=== PATIENT | female | born 1945 | race African-American/Black ===

== ENCOUNTER 2018-05-12 17:30 | Emergency (ER) | payer OTHER ==
[~2018-05-12] VITALS: Ht 167.6 cm; Wt 56.7 kg
[~2018-05-12 17:30] MED LIST: AMLO; ARICEPT; ATIVAN; BUPR; BUPR100T14 OR; DIVA250T3 PO; DONE10TA17 PO; ENAL-3 PO; FURO20TA3 PO; LEVE500T22 PO; LORA-205 PO; LORA1TAB12 PO; MEGE40TA15 PO; METROPOLOL PO; MIRT15TA3 PO; PAXIL PO; POTA8TAB2 PO; SIMV40TA96 PO; [UNRECOGNIZED DRUG - OTHER]; [UNRECOGNIZED DRUG - OTHER]
[2018-05-12 18:38] LABS: Basophils # (auto) 0 uL; Basophils % (auto) 0.4 % (0.0-2.0); Eosinophils # (auto) 0 uL; Eosinophils % (auto) 0.5 % (0.0-7.0); Hematocrit 41.8 % (36.0-46.0); Hemoglobin 13.8 g/dL (12.2-16.2); Lymphocytes # (auto) 2.3 uL; Lymphocytes % (auto) 26.9 % (10.0-50.0); Mean Corpuscular Hemoglobin 28.6 pg (28.0-32.0); Mean Corpuscular Hgb Conc. 32.9 g/dL (32.0-36.0); Mean Corpuscular Volume 86.7 fL (80.0-100.0); Monocytes # (auto) 0.8 uL; Neutrophils # (auto) 5.5 uL; Neutrophils % (auto) 63.2 % (37.0-80.0); Platelet Count (auto) 131 10^3/uL (140-450); Red Blood Cells 4.82 10^6/uL (4.0-5.20); Red Cell Distribution Width 14.5 % (11.8-14.3); White Blood Cell 8.7 10^3/uL (4.4-10.8)
[2018-05-12 18:42] LABS: Albumin 2.9 g/dL (3.4-5.0); Anion Gap 17 (5-15); BUN/Creatinine Ratio 6.3; Blood Urea Nitrogen 8 mg/dL (7-18); Calcium 8.3 mg/dL (8.5-10.1); Carbon Dioxide 19 mmol/L (21-32); Chloride 102 mmol/L (98-107); GFR African American 53 mL/min; GFR Non-African American 44 mL/min; Glucose 70 mg/dL (74-106); Sodium 138 mmol/L (136-145)
[2018-05-12 18:45] LABS: Alanine Aminotransferase 17 U/L (13-56); Alkaline Phosphatase 64 U/L (45-117); Aspartate Aminotransferase 31 U/L (15-37); Bilirubin, Total 0.4 mg/dL (0.2-1.0); Total Protein 7.7 g/dL (6.4-8.2)
[2018-05-12 18:47] LABS: Potassium 2.7 mmol/L (3.5-5.1)
[2018-05-12] MEDS ORDERED: SOD CHL 0.9%/ KCL 20MEQ 1,000 ML IV ONE (19:00)
[2018-05-12] MEDS ORDERED: POTASSIUM CHL 20MEQ/100ML 100 ML IV ONE (21:00)
[2018-05-12] MEDS ORDERED: DEXTROSE (50%) 50ML SYRG IV ONE (23:00)
[2018-05-12] MEDS ORDERED: DEXTROSE 50% SYRINGE 50 ML IV ONE (23:02)
[2018-05-13 02:39] LABS: Albumin 2.6 g/dL (3.4-5.0); BUN/Creatinine Ratio 7.3; Calcium 8.1 mg/dL (8.5-10.1)
[2018-05-13 02:42] LABS: Bilirubin, Total 0.6 mg/dL (0.2-1.0); Total Protein 6.9 g/dL (6.4-8.2)
[2018-05-13 02:44] LABS: Potassium 2.7 mmol/L (3.5-5.1)
[2018-05-13] MEDS ORDERED: POTASSIUM CHL 20MEQ/100ML 100 ML IV ONE (03:00)
[2018-05-13 07:39] LABS: BUN/Creatinine Ratio 7.9; Calcium 8.4 mg/dL (8.5-10.1); Potassium 3.3 mmol/L (3.5-5.1)
[2018-05-13 09:21] VITALS: BP 106/70
== END 2018-05-13 10:01 | disposition short-term general hospital (02) ==
LOC: ER 17:30 → EDBD 17:30 → ER 05-13 10:01
DX: T38.3X1A Poisoning by insulin and oral hypoglycemic [antidiabetic] drugs, accidental (unintentional), initial encounter (principal); R55 Syncope and collapse; E16.2 Hypoglycemia, unspecified; R41.82 Altered mental status, unspecified; G40.909 Epilepsy, unspecified, not intractable, without status epilepticus; E87.6 Hypokalemia; G30.9 Alzheimer's disease, unspecified; F02.80 Dementia in other diseases classified elsewhere, unspecified severity, without behavioral disturbance, psychotic disturbance, mood disturbance, and anxiety; F32.9 Major depressive disorder, single episode, unspecified; E78.5 Hyperlipidemia, unspecified; I10 Essential (primary) hypertension; F17.210 Nicotine dependence, cigarettes, uncomplicated; Y92.9 Unspecified place or not applicable
CPT/HCPCS: 36415; 70450; 80048; 80053; 82550; 82962; 83880; 84443; 84484; 85025; 93005; 94761; 96365; 96366; 96375; 99285; J3480; J7030; J7040; J7042

== ENCOUNTER 2018-08-22 17:46 | Emergency (ER) | payer OTHER ==
[~2018-08-22] VITALS: Ht 157.5 cm; Wt 54.4 kg
[2018-08-22] MEDS ORDERED: SODIUM CHLORIDE 0.9% 500 ML IVB ONE (18:11)
[2018-08-22 20:05] LABS: Basophils # (auto) 0.2 uL; Eosinophils # (auto) 0 uL; Eosinophils % (auto) 0.6 % (0.0-7.0); Hematocrit 34.5 % (36.0-46.0); Hemoglobin 11.5 g/dL (12.2-16.2); Lymphocytes # (auto) 1.8 uL; Lymphocytes % (auto) 24.5 % (10.0-50.0); Mean Corpuscular Hemoglobin 29.6 pg (28.0-32.0); Mean Corpuscular Hgb Conc. 33.3 g/dL (32.0-36.0); Mean Corpuscular Volume 88.7 fL (80.0-100.0); Monocytes # (auto) 0.6 uL; Monocytes % (auto) 7.7 % (0.0-12.0); Neutrophils # (auto) 4.8 uL; Neutrophils % (auto) 64.2 % (37.0-80.0); Nucleated Red Blood Cells % 0.1 %; Platelet Count (auto) 186 10^3/uL (140-450); Red Blood Cells 3.89 10^6/uL (4.0-5.20); White Blood Cell 7.4 10^3/uL (4.4-10.8)
[2018-08-22 20:16] LABS: Red Cell Distribution Width 21.3 % (11.8-14.3)
[2018-08-22 20:23] LABS: Albumin 2.8 g/dL (3.4-5.0); Calcium 8.7 mg/dL (8.5-10.1)
[2018-08-22 20:24] LABS: INR 1.19 (0.9-1.15); Partial Thromboplastin Time 26.5 sec (23.78-33.04); Prothrombin Time 12.6 sec (9.27-12.13)
[2018-08-22 20:26] LABS: BUN/Creatinine Ratio 14.9; Bilirubin, Total 0.6 mg/dL (0.2-1.0); Total Protein 7.4 g/dL (6.4-8.2)
[2018-08-22 20:30] LABS: Potassium 2.8 mmol/L (3.5-5.1)
[2018-08-22] MEDS ORDERED: POTASSIUM CHL 20MEQ/100ML 100 ML IV ONE (20:45)
[2018-08-22 23:11] LABS: Urine Bacteria NONE SEEN /hpf (None Seen); Urine Blood Negative /uL (Negative); Urine Mucus FEW (None Seen); Urine Specific Gravity 1.006 (1.001-1.035); Urine WBC 1 /hpf (0 - 5)
[2018-08-22 23:38] VITALS: BP 95/57
== END 2018-08-22 23:52 | disposition short-term general hospital (02) ==
LOC: EDUNIT# 17:46 → EDBD 17:46 → ER 17:53
DX: E87.6 Hypokalemia (principal); R41.82 Altered mental status, unspecified; R55 Syncope and collapse; E78.5 Hyperlipidemia, unspecified; I10 Essential (primary) hypertension; F17.210 Nicotine dependence, cigarettes, uncomplicated; Z79.899 Other long term (current) drug therapy
CPT/HCPCS: 36415; 70450; 71045; 80053; 81001; 83735; 85025; 85610; 85730; 93005; 94761; 96365; 96366; 99285; J3480; J7030